=== PATIENT | female | born 1965 | race Two or more races ===

== ENCOUNTER 2020-10-29 09:01 | Outpatient (CLI) | payer OTHER | END 2020-10-29 09:23 | disposition home or self-care (01) | LOC: SONOGRAMA 09:01 | PROVIDERS: ATTEND Pathology Anatomic Pathology & Clinical Pathology | DX: E04.2 Nontoxic multinodular goiter (principal) ==

== ENCOUNTER 2022-11-04 06:29 | Inpatient (IN) | payer OTHER ==
[~2022-11-04] VITALS: Ht 165.1 cm; Wt 104.3 kg
[~2022-11-04 06:29] MED LIST: SYNTHROID100 MCG PO; ZESTRIL10 M1 PO
== END 2022-11-05 11:19 | disposition home or self-care (01) | DRG 627 ==
LOC: CIR.AMB 06:29 → SURG 18:55 → O/R 18:55 → CIR.AMB 19:00 → SURG 21:17
PROVIDERS: ADMIT Otolaryngology; ATTEND Otolaryngology
PROC: 0GTH0ZZ Resection of Right Thyroid Gland Lobe, Open Approach (ICD-10-PCS; principal; 2022-11-04 19:00)
DX: C73 Malignant neoplasm of thyroid gland (principal); Z20.822 Contact with and (suspected) exposure to COVID-19